=== PATIENT | male | born 1995 | race Caucasian/White ===

== ENCOUNTER 2017-08-25 21:15 | Emergency (ER) | payer BC ==
[~2017-08-25] VITALS: Ht 188 cm; Wt 70.3 kg
[2017-08-25] MEDS ORDERED: CEPH500 PO ×2 (21:55→21:56)
== END 2017-08-25 22:39 | disposition home or self-care (01) ==
LOC: ER 21:15
DX: S91.012A Laceration without foreign body, left ankle, initial encounter (principal); Z23 Encounter for immunization; W27.0XXA Contact with workbench tool, initial encounter
CPT/HCPCS: 12002; 73610; 90471; 90714; 99283-25